=== PATIENT | male | born 1945 | race Caucasian/White ===

== ENCOUNTER 2019-12-15 12:21 | Inpatient (IN) | payer MEDICARE, OTHER ==
[~2019-12-15] VITALS: Ht 185.4 cm; Wt 89.2 kg
[2019-12-15] MEDS ORDERED: TOPROL XL25 MG PO (12:37)
[2019-12-15] MEDS ORDERED: MULTAQ400 MG PO (12:38)
[2019-12-15] MEDS ORDERED: ELIQUIS5 MG PO (12:38)
[2019-12-15] MEDS ORDERED: LIPITOR20 MG PO (12:38)
[2019-12-15] MEDS ORDERED: SINGULAIR10 MG PO (12:38)
[2019-12-15] MEDS ORDERED: CHEMO (12:39)
[2019-12-15 13:34] LABS: CALC OSMOLALITY 270 mosm/kg (275-300); CARBON DIOXIDE 25.3 mmol/L (21.0-32.0); CHLORIDE - SERUM 101 mmol/L (98-107); CREATININE - SERUM 1.3 mg/dL (0.6-1.3); GLUCOSE 110 mg/dL (74-106); POTASSIUM - SERUM 4.3 mmol/L (3.5-5.1); SODIUM 134 mmol/L (136-145); UREA NITROGEN 18 mg/dL (7-18); eGFR NON AFRICAN AMERICAN 57 mL/min (90-120)
[2019-12-15 13:42] LABS: ALBUMIN 2.4 g/dL (3.4-5.0); ALKALINE PHOSPHATASE 131 U/L (30-120); ALT (SGPT) 19 U/L (10-68); AMYLASE - SERUM 76 U/L (25-115); BILIRUBIN - TOTAL 0.99 mg/dL (0.2-1.3); LIPASE 178 U/L (73-393); PROTEIN - SERUM 7.2 g/dL (6.4-8.2); TROPONIN-I < 0.017 ng/mL (0.000-0.060)
[2019-12-15 14:06] LABS: BASOPHILS 0.4 % (0-2); EOSINOPHILS 2.3 % (0-7); HEMATOCRIT 38.9 % (42.0-54.0); HEMOGLOBIN 13.1 g/dL (13.5-17.5); IMMATURE GRANULOCYTES 0.5 % (0-5); LYMPHOCYTES 25.9 % (15-50); MCH 30.3 pg (26.0-34.0); MCHC 33.7 g/dL (31.0-37.0); MEAN PLATELET VOLUME 10.5 fL (7.4-10.4); MONOCYTES 16.3 % (2-11); NEUTROPHILS 54.6 % (40-80); RBC 4.32 10x6/uL (4.20-6.10); RDW 16.8 % (11.5-14.5); WBC 8.2 10x3/uL (4.8-10.8)
[2019-12-15 14:13] LABS: PLATELET COUNT 224 10x3/uL (130-400)
[2019-12-15 14:18] LABS: BILIRUBIN NEGATIVE (NEGATIVE); GLUCOSE NEGATIVE (NEGATIVE); KETONE NEGATIVE (NEGATIVE); NITRITE NEGATIVE (NEGATIVE); SPECIFIC GRAVITY 1.025 (1.005-1.020); UROBILINOGEN NORMAL (NORMAL)
[2019-12-15 14:19] LABS: BACTERIA FEW /hpf (NEGATIVE); EPITHELIAL CELLS OCC /hpf (0-5); RED CELLS - URINE OCC /hpf (0-5); WHITE CELLS - URINE RARE /hpf (NEGATIVE)
[2019-12-15 14:21] LABS: HYALINE CAST RARE /lpf (NONE SEEN)
--- NOTE | 2019-12-15 15:00 | NUR ---
PT LAYING IN BED. RESPIRATIONS ARE EVEN AND UNLABORED. NO DISTRESS NOTED. COLOR WNL FOR RACE. AT BEDSIDE. WILL CONTINUE TO MONITOR.
[2019-12-15 15:14] VITALS: BP 107/65
--- NOTE | 2019-12-15 17:05 | NUR ---
PT LAYING IN BED. RESPIRATIONS ARE EVEN AND UNLABORED. NO DISTRESS NOTED. RATES PAIN 3/10 AT THIS TIME. PT DENIES NEED FOR PAIN MEDICATION AT THIS TIME. AT BEDSIDE. VSS. WILL CONTINUE TO MONIOTR.
[2019-12-15 17:09] VITALS: BP 102/58
--- NOTE | 2019-12-15 17:45 | NUR ---
ROCEPHIN COMPLETE AT THIS TIME.
--- NOTE | 2019-12-15 18:44 | NUR ---
RECEIVED PT FROM ER. DR. ZAVALA IN ROOM SPEAKING WITH PATIENT. PT HAS REQUESTED SCRUBS. WILL PROVIDE THEM. REQUESTED LAURENT JAFFE, WILL PROVIDE. DENIES ANY OTHER NEEDS AT THIS TIME. QUICK START COMPLETED. WILL CONTINUE TO MONITOR.
[2019-12-15 19:25] LABS: % SATURATION 19 % (15-55); IRON 34 ug/dl (35-150); TOTAL IRON BIND CAPACITY 177 ug/dl (260-445); UNSAT IRON BIND CAPACITY 143 ug/dl (150-375)
--- NOTE | 2019-12-15 19:30 | NUR ---
PT SITTING UP ON SIDE OF BED, AOX4. DENIES NAUSEA AT THIS TIME. IV RIGHT HAND INFUSING NS @ 100. TELE PLACED ON PT. PROVIDED SCRUBS TO WEAR. DENIES PAIN. LUNGS DIMINISHED BILAT. OCCASIONAL COUGH. PROVIDED WATER. DENIES OTHER NEEDS. CL IN REACH, WILL CTM
[2019-12-15 19:45] LABS: APTT 51.5 SECONDS (22.8-39.4); INR 1.02 (0.85-1.17); PROTIME 13.4 SECONDS (11.6-15.0)
[2019-12-15 20:00] VITALS: BP 107/70
[2019-12-15 22:29] VITALS: BMI 24.4
--- NOTE | 2019-12-15 22:30 | NUR ---
IV RIGHT HAND BURNING AFTER DOXY ABX. NOT RED OR SWOLLEN BUT WAS BOTHERING PT AND HE STATES HE WOULD PREFER IV IN HIS LEFT ARM ANYWAY D/T BEING RIGHT HANDED. RESITED 20G IV LEFT FA X1 ATTEMPT. REMOVED RIGHT HAND IV WITH CATHETER INTACT. DENIES OTHER NEEDS, WILL CTM
[2019-12-16] VITALS: BP 103/61
[2019-12-16] MEDS ORDERED: MULTAQ400 MG PO (00:23)
[2019-12-16 04:00] VITALS: BP 103/45
[2019-12-16 06:49] LABS: BASOPHILS 0.7 % (0-2); EOSINOPHILS 2.4 % (0-7); HEMATOCRIT 32.8 % (42.0-54.0); IMMATURE GRANULOCYTES 0.3 % (0-5); LYMPHOCYTES 28.2 % (15-50); MCH 30.1 pg (26.0-34.0); MCHC 33.5 g/dL (31.0-37.0); MCV 89.9 fL (80.0-100.0); MONOCYTES 15.9 % (2-11); NEUTROPHILS 52.5 % (40-80); PLATELET COUNT 222 10x3/uL (130-400); RBC 3.65 10x6/uL (4.20-6.10); RDW 16.9 % (11.5-14.5)
[2019-12-16 06:58] LABS: WBC 5.7 10x3/uL (4.8-10.8)
[2019-12-16 07:01] LABS: ALBUMIN 2.2 g/dL (3.4-5.0); BILIRUBIN - TOTAL 1.16 mg/dL (0.2-1.3); CALCIUM 8.9 mg/dL (8.5-10.1); CARBON DIOXIDE 25.5 mmol/L (21.0-32.0); CREATININE - SERUM 1.2 mg/dL (0.6-1.3); MAGNESIUM - SERUM 2.1 mg/dL (1.8-2.4); POTASSIUM - SERUM 4.5 mmol/L (3.5-5.1); PROTEIN - SERUM 6.6 g/dL (6.4-8.2)
[2019-12-16 08:00] VITALS: BP 102/40
[2019-12-16 12:00] VITALS: BP 105/58
[2019-12-16 12:55] VITALS: BMI 24.4
[2019-12-16 14:07] VITALS: Ht 185.4 cm; Wt 89.2 kg
[2019-12-16 16:00] VITALS: BP 107/56
[2019-12-16 20:00] VITALS: BP 97/55
--- NOTE | 2019-12-16 21:00 | NUR ---
UP IN CHAIR AT BEDSIDE. NO COMPLAINTS VOICED. RESP EVEN AND ULABORED. NO DISTRESS NOTED. LFA WITH IV INTACT. NO REDNESS OR EDEMA NOTED. CL IN REACH
[2019-12-17] VITALS: BP 106/58
--- NOTE | 2019-12-17 01:24 | NUR ---
I have reviewed this patient and I concur with the Shift Assessment completed by the Licensed Practical Nurse today this shift.
[2019-12-17 04:00] VITALS: BP 94/53
[2019-12-17 06:44] LABS: BASOPHILS 0.6 % (0-2); EOSINOPHILS 3.1 % (0-7); HEMATOCRIT 28.6 % (42.0-54.0); HEMOGLOBIN 9.4 g/dL (13.5-17.5); IMMATURE GRANULOCYTES 0.3 % (0-5); LYMPHOCYTES 32.6 % (15-50); MCH 29.6 pg (26.0-34.0); MCHC 32.9 g/dL (31.0-37.0); MCV 89.9 fL (80.0-100.0); MONOCYTES 17.1 % (2-11); NEUTROPHILS 46.3 % (40-80); PLATELET COUNT 197 10x3/uL (130-400); RBC 3.18 10x6/uL (4.20-6.10); RDW 16.8 % (11.5-14.5)
[2019-12-17 06:49] LABS: WBC 3.6 10x3/uL (4.8-10.8)
[2019-12-17 07:21] LABS: ANION GAP 10.1 mmol/L (8-16); BILIRUBIN - TOTAL 0.84 mg/dL (0.2-1.3); CALCIUM 8.2 mg/dL (8.5-10.1); CARBON DIOXIDE 22.9 mmol/L (21.0-32.0); CREATININE - SERUM 1.1 mg/dL (0.6-1.3); MAGNESIUM - SERUM 1.9 mg/dL (1.8-2.4); PROTEIN - SERUM 5.9 g/dL (6.4-8.2)
[2019-12-17 08:38] VITALS: BP 90/45
[2019-12-17 12:00] VITALS: BP 93/51
[2019-12-17 16:00] VITALS: BP 105/61
--- NOTE | 2019-12-17 16:15 | NUR ---
PATIENT IN BED WITH IV INTACT. NO COMPLAINTS OR SIGNS OF DISTRESS. DR. ZAVALA TO SEE PATIENT. STATED PATIENT SHOULD BE OK TO HAVE SURGERY THURSDAY. PATIENT FAMILY AT BEDSIDE. CALL LIGHT WITHIN REACH.
--- NOTE | 2019-12-17 18:18 | NUR ---
PATIENT IN BED WITH IV INTACT. NO COMPLAINTS OR SIGNS OF DISTRESS. CALL LIGHT WITHIN REACH.
[2019-12-17 20:00] VITALS: BP 101/54
[2019-12-18] VITALS: BP 100/65
[2019-12-18 04:00] VITALS: BP 100/50
[2019-12-18 05:41] LABS: ANION GAP 11.1 mmol/L (8-16); BILIRUBIN - TOTAL 0.79 mg/dL (0.2-1.3); CALCIUM 8.4 mg/dL (8.5-10.1); CARBON DIOXIDE 22.9 mmol/L (21.0-32.0); CREATININE - SERUM 1.1 mg/dL (0.6-1.3); MAGNESIUM - SERUM 1.7 mg/dL (1.8-2.4); PROTEIN - SERUM 5.6 g/dL (6.4-8.2)
[2019-12-18 05:45] LABS: BASOPHILS 0.6 % (0-2); EOSINOPHILS 2.7 % (0-7); HEMATOCRIT 27.4 % (42.0-54.0); HEMOGLOBIN 9.2 g/dL (13.5-17.5); IMMATURE GRANULOCYTES 0.6 % (0-5); LYMPHOCYTES 30.7 % (15-50); MCH 30.1 pg (26.0-34.0); MCHC 33.6 g/dL (31.0-37.0); MCV 89.5 fL (80.0-100.0); MEAN PLATELET VOLUME 9.9 fL (7.4-10.4); MONOCYTES 19.7 % (2-11); NEUTROPHILS 45.7 % (40-80); PLATELET COUNT 213 10x3/uL (130-400); RBC 3.06 10x6/uL (4.20-6.10); RDW 16.8 % (11.5-14.5); WBC 3.4 10x3/uL (4.8-10.8)
[2019-12-18 08:00] VITALS: BP 101/45
[2019-12-18 12:00] VITALS: BP 93/52
[2019-12-18 16:00] VITALS: BP 93/52
[2019-12-18 21:01] VITALS: BP 94/54
[2019-12-19 00:21] VITALS: BP 88/50
[2019-12-19 05:14] LABS: BASOPHILS 0.6 % (0-2); EOSINOPHILS 3.2 % (0-7); HEMATOCRIT 27.8 % (42.0-54.0); HEMOGLOBIN 9.3 g/dL (13.5-17.5); IMMATURE GRANULOCYTES 0.9 % (0-5); LYMPHOCYTES 31.4 % (15-50); MCH 30.1 pg (26.0-34.0); MCHC 33.5 g/dL (31.0-37.0); MEAN PLATELET VOLUME 9.7 fL (7.4-10.4); MONOCYTES 20.2 % (2-11); NEUTROPHILS 43.7 % (40-80); PLATELET COUNT 210 10x3/uL (130-400); RBC 3.09 10x6/uL (4.20-6.10); RDW 16.9 % (11.5-14.5); WBC 3.4 10x3/uL (4.8-10.8)
[2019-12-19 05:31] LABS: ANION GAP 8.4 mmol/L (8-16); BILIRUBIN - TOTAL 0.84 mg/dL (0.2-1.3); CALCIUM 8.3 mg/dL (8.5-10.1); CARBON DIOXIDE 24.2 mmol/L (21.0-32.0); CREATININE - SERUM 1.1 mg/dL (0.6-1.3); MAGNESIUM - SERUM 1.8 mg/dL (1.8-2.4); POTASSIUM - SERUM 3.6 mmol/L (3.5-5.1); PROTEIN - SERUM 5.7 g/dL (6.4-8.2)
[2019-12-19 06:10] VITALS: BP 93/52
[2019-12-19 08:16] VITALS: BP 98/57
--- NOTE | 2019-12-19 09:10 | EC ---
PATIENT:CHATO HUGO DATE OF SERVICE: 12/15/19 SEX: M MEDICAL RECORD: [id number] DATE OF : [birth year] LOCATION:[facility] AGE OF PATIENT: 74 ADMISSION DATE: 12/15/19 REFERRING PHYSICIAN: INTERPRETING PHYSICIAN: JUAN RAMON KAUR MD ECHOCARDIOGRAM REPORT ECHO CHARGES 4 ECHO COMPLETE Date: 12/16/19 CLINICAL DIAGNOSIS: DYSPNEA HX CAD/STENT ECHOCARDIOGRAPHIC MEASUREMENTS (adult normal given) AC root (d.<3.7cm) 3.8 cm LV Septum d (<1.2 cm> 1.4 cm Valve Excursion 1.5 cm LV Septum (systole) 1.8 cm Left Atria (s.<4.0cm> 3.0 cm LVPW d(<1.2cm) 1.3 cm RV (d.<2.3cm) 3.9 cm LVPW (sytole) 2.0 cm LV diastole(<5.6CM) 6.4 cm MV E-F(>70mm/sec) cm LV systole 3.5 cm LVOT Diameter 2.1 cm MV exc.(>10mm) 2.0 cm Est.ejection fraction (50-75%) % DOPPLER: LVIT cm/sec A 77.0 cm/sec E 34.0 cm/sec LA cm/sec RVSP 21 mmHg LVOT 137 cm/sec AOP1/2T m/s Asc. Ao 188 cm/sec RVOT 83 cm/sec RA cm/sec PA 128 cm/sec AV Gradient Peak 14.13mmHg AV Mean 8.71 mmHg AV Area 2.54 cm MV Gradient Peak 4.23 mmHg MV Mean 1.27 mmHg MV Area cm COMMENTS: Assistant Director: 2 PADMINI SOSA Safe Deposit Clerk: 3 Dr. Floyd TAPE# PACS Pericardial Effusion N DATE OF SERVICE: Adequate 2D, color flow imaging, spectral Doppler, and M-Mode. LVH is present. LV internal dimensions are normal. Wall motion is normal. EF greater than or equal to 55%. Aortic valve is tricuspid. No evidence of stenosis by Doppler interrogation. Left atrium is normal at 3.0 cm. Mitral valve shows no prolapse. Trace MR. Right-sided chambers are grossly normal. Trace TR. ECHOCARDIOGRAM REPORT [id number] CHATO HUGO TRANSINT:[id number] Voice Confirmation ID: [id number] DOCUMENT ID: [id number] JUAN RAMON KAUR MD at 0910 CC: [id number] DICTATION DATE: 12/16/19 1157 DANCE COSTUME DESIGNER: 12/16/19 1254 ADM IN [facility] [address] [place] [address]
--- NOTE | 2019-12-19 10:00 | NUR ---
DR. BOYCE STATES TO ME TO TALK TO PRIMARY ABOUT CONSULTING GI FOR PT'S GERD AND HAVING DR. NUR DO AN OUTPATIENT EGD. I VERBALIZED UNDERSTANDING. MANAV BARONED.
--- NOTE | 2019-12-19 10:26 | NUR ---
I have reviewed this patient and I concur with the Shift Assessment completed by the Licensed Practical Nurse today this shift.
--- NOTE | 2019-12-19 10:28 | NUR ---
CONSENTS SIGNED FOR [facility] TOMORROW.
[2019-12-19 12:11] VITALS: BP 100/52
--- NOTE | 2019-12-19 13:34 | NUR ---
SPOKE WITH MANAV ORDAZ THAT DR. BOYCE WANTS GI CONSULTED FOR PT'S ACID REFLUX AND POSSIBLE EGD OUTPATIENT. HE VERBALIZED UNDERSTANDING.
--- NOTE | 2019-12-19 13:58 | NUR ---
Nutrition follow-up: Diet: Regular PO intake ~71% average of last 6 meals Labs reviewed +BM Wt: 184# Pt scheduled for hernia repair 12/20/19 RDN following.
--- NOTE | 2019-12-19 14:43 | NUR ---
PT HAD A 9 RUN OF V-TACH. EKG DONE. MANAV ORDAZ AWARE AND STATES TO ORDER CARDIAC ENZYMES ONE TIME. I VERBALIZED UNDRSTANDING. LAB DRAWN CARDIAC ENZYMES.
[2019-12-19 15:25] LABS: CKMB 1.5 U/L (0.0-3.6); CREATINE KINASE 40 UL (21-232)
[2019-12-19 15:27] LABS: TROPONIN-I < 0.017 ng/mL (0.000-0.060)
--- NOTE | 2019-12-19 15:55 | NUR ---
MANAV ORDAZ STATES EKG AND CARDIAC ENZYMES WERE NORMAL BUT PT MAY STILL NEED CARDIAC CLEARANCE FOR SX TOMOROROW AFTER HAVING 9 RUN OF VTACH. HE STATES TO CALL CARDIOLOGY AND MAKE THEM AWARE. I CALLED AND SPOKE WITH ADRIAN ORDAZ ABOUT SITUATION AND THAT CARDILOGY WAS CONSULTED 12/16/19 0817 AND NO ONE HAS SEEN PT ALSO SHE STATES SHE WILL MAKE SURE SOMEONE COMES TO SEE PT TODAY AND WILL SEE ABOUT CLEARING PT FOR SX TOMORROW. I VERBALIZED UNDERSTANDING.
[2019-12-19 16:54] VITALS: BP 98/50
[2019-12-19 21:06] LABS: CREATINE KINASE 34 UL (21-232); TROPONIN-I < 0.017 ng/mL (0.000-0.060)
[2019-12-19 21:58] VITALS: BP 93/46
--- NOTE | 2019-12-19 22:26 | NUR ---
IV RESITED TI RIGHT FOREARM 22GAGE. EKG #1 COMPLETED SINUS WITH 1ST DEGREE AV BLOCK PATIENT RESTING SITTIN UP IN BED WITH FOOTBALL GAME ON. NO S/S OF DISTRESS NO C/O PAIN STATED NO NEEDS AT THIS TIME.
[2019-12-20 00:51] VITALS: BP 95/47
[2019-12-20 02:56] LABS: BASOPHILS 0.3 % (0-2); EOSINOPHILS 3.8 % (0-7); HEMATOCRIT 28.8 % (42.0-54.0); HEMOGLOBIN 9.4 g/dL (13.5-17.5); IMMATURE GRANULOCYTES 0.6 % (0-5); LYMPHOCYTES 30.7 % (15-50); MCH 29.7 pg (26.0-34.0); MCHC 32.6 g/dL (31.0-37.0); MCV 90.9 fL (80.0-100.0); MEAN PLATELET VOLUME 9.2 fL (7.4-10.4); MONOCYTES 20.3 % (2-11); NEUTROPHILS 44.3 % (40-80); PLATELET COUNT 234 10x3/uL (130-400); RBC 3.17 10x6/uL (4.20-6.10); WBC 3.2 10x3/uL (4.8-10.8)
[2019-12-20 03:28] LABS: ALBUMIN 2.1 g/dL (3.4-5.0); ALKALINE PHOSPHATASE 88 U/L (30-120); ALT (SGPT) 15 U/L (10-68); BILIRUBIN - TOTAL 0.79 mg/dL (0.2-1.3); CALC OSMOLALITY 273 mosm/kg (275-300); CALCIUM 8.3 mg/dL (8.5-10.1); CARBON DIOXIDE 24.7 mmol/L (21.0-32.0); CHLORIDE - SERUM 107 mmol/L (98-107); CKMB 1.5 U/L (0.0-3.6); CREATINE KINASE 32 UL (21-232); CREATININE - SERUM 1.3 mg/dL (0.6-1.3); GLUCOSE 92 mg/dL (74-106); MAGNESIUM - SERUM 1.7 mg/dL (1.8-2.4); PHOSPHOROUS 3.8 mg/dL (2.5-4.9); POTASSIUM - SERUM 3.7 mmol/L (3.5-5.1); PROTEIN - SERUM 5.9 g/dL (6.4-8.2); SODIUM 137 mmol/L (136-145); TROPONIN-I < 0.017 ng/mL (0.000-0.060); UREA NITROGEN 13 mg/dL (7-18); eGFR NON AFRICAN AMERICAN 57 mL/min (90-120)
--- NOTE | 2019-12-20 03:38 | NUR ---
#2 EKG COMPLETD AT 0200
[2019-12-20 06:16] VITALS: BP 91/46
[2019-12-20 10:06] VITALS: BP 122/57
[2019-12-20 11:33] LABS: CKMB 1.4 U/L (0.0-3.6); CREATINE KINASE 34 UL (21-232)
[2019-12-20 11:34] LABS: TROPONIN-I < 0.017 ng/mL (0.000-0.060)
--- NOTE | 2019-12-20 13:39 | NUR ---
I have reviewed this patient and I concur with the Shift Assessment completed by the Licensed Practical Nurse today this shift.
[2019-12-20 20:58] VITALS: BP 88/49
[2019-12-21 00:32] VITALS: BP 95/45
--- NOTE | 2019-12-21 03:34 | NUR ---
ALERT AND ORENTED ABLE TO VOICE NEEDS AND WANTS TO STAFF. WATER AND CALL LIGHT IN REACH. DRESSING PLACE TO SITE
[2019-12-21 04:35] VITALS: BP 86/35
[2019-12-21 06:04] LABS: HEMATOCRIT 26.3 % (42.0-54.0); HEMOGLOBIN 8.6 g/dL (13.5-17.5); MCH 29.8 pg (26.0-34.0); MCHC 32.7 g/dL (31.0-37.0); MEAN PLATELET VOLUME 9.6 fL (7.4-10.4); PLATELET COUNT 255 10x3/uL (130-400); RBC 2.89 10x6/uL (4.20-6.10); RDW 17.1 % (11.5-14.5)
[2019-12-21 06:32] LABS: ALKALINE PHOSPHATASE 81 U/L (30-120); BILIRUBIN - TOTAL 0.67 mg/dL (0.2-1.3); CALC OSMOLALITY 278 mosm/kg (275-300); CALCIUM 8.3 mg/dL (8.5-10.1); CARBON DIOXIDE 23.6 mmol/L (21.0-32.0); CHLORIDE - SERUM 109 mmol/L (98-107); GLUCOSE 93 mg/dL (74-106); MAGNESIUM - SERUM 1.9 mg/dL (1.8-2.4); PHOSPHOROUS 3.3 mg/dL (2.5-4.9); POTASSIUM - SERUM 3.7 mmol/L (3.5-5.1); PROTEIN - SERUM 5.6 g/dL (6.4-8.2); SODIUM 139 mmol/L (136-145); UREA NITROGEN 14 mg/dL (7-18); eGFR NON AFRICAN AMERICAN 78 mL/min (90-120)
[2019-12-21 06:36] LABS: ALT (SGPT) 11 U/L (10-68)
--- NOTE | 2019-12-21 07:10 | NUR ---
REC'D IN BED AWAKE AND ALERT. RESP EVEN AND UNLABORED WITH NO DISTRESS NOTED. CAN EXPRESS NEEDS AND WANTS. NO C/O NOTED OR VOICED. ASSESSMENT COMPLETED. C/L IN REACH AT BEDSIDE.
[2019-12-21 08:30] VITALS: BP 96/52
[2019-12-21 10:35] LABS: EOSINOPHILS 1 % (0-7); LYMPHOCYTES 12 % (15-50); MONOCYTES 18 % (2-11); NEUTROPHILS 69 % (40-80)
[2019-12-21 10:36] LABS: PLATELET ESTIMATE NORMAL; ROULEAUX OCC
--- NOTE | 2019-12-21 12:03 | MORECARE ---
CASE MANAGEMENT DISCHARGE SUMMARY PATIENT: CHATO HUGO UNIT: [id number] ADM DATE: 12/15/19 AGE: 74 : 45 SEX: M ROOM/BED: D.2231 AUTHOR: KYLEEDOC PHYSICIAN: REFERRING PHYSICIAN: DALE MARIA MD DATE OF SERVICE: 12/21/19 Discharge Plan Patient Name: CHATO HUGO Facility: [facility]:[place] : 1945 Planned Disposition: Home Anticipated Discharge Date: Discharge Date: Expected LOS: Initial Reviewer: [id number] Initial Review Date: 12/21/2019 Generated: 12/21/19 1:03 pm Comments DCP- Discharge Planning Updated by [email or web address]: Elsa Quispe on 12/21/19 11:[address] Patient Name: CHATO HUGO Admission Status: ER Accout number: [id number] Admission Date: 12-15-2019 : 1945 Admission Diagnosis:PNEUMONIA, UNSPECIFIED ORGANISM Attending: DALE MEYERS Current LOS: 6 Anticipated DC Date: Planned Disposition: Home Primary Insurance: MEDICARE A & B Discharge Planning Comments: CM met with patient at bedside after explaining CM role and obtaining verbal consent. CM discussed availability / needs of home health, REHAB and medical equipment. PATIENT DENIES ANY DISCHARGE NEEDS. IMM SIGNED. WILL TRANSPORT HOME AT TIME OF DISHCARGE. CM TO FOLLOW AND ASSIST NEEDED. Pre Press Operator: Elsa Quispe DCPIA - Discharge Planning Initial Assessment Updated by [email or web address]: Elsa Quispe on 12/21/19 12:01 pm * Is the patient Alert and Oriented? Yes * [facility] * [facility] [place] * Preadmission Environment Home with Family * ADLs Independent * Equipment None * Community resources currently utilized None * Additional services required to return to the preadmission environment? No * Can the patient safely return to the preadmission environment? Yes * Has this patient been hospitalized within the prior 30 days at any hospital? No Coverage Notice Reviewer: [id number] - Elsa Quispe Notice Issued Date-Time: 12/21/2019 12:02 Notice Type: IM Discharge Notice Notice Delivered To: Patient Relationship to Patient: Channel Marketing Program Manager Name: Delivery Method: HAND - Hand Delivered Silvia Days: Prior Verbal Notification: Recipient Understood Notice: Yes Recipient Signature: Yes Med Rec Note Co-signed by Attending: Coverage Notice Comment: Patient Name: CHATO HUGO Page [id number] at 1203 All edits/amendments must be made on the electronic document DICTATION DATE: 12/21/19 1203 FOREST RESOURCES PROFESSOR: LIZ 12/21/19 1203 RPT#: [id number] DC DATE: STATUS: ADM IN [facility] [address] [place] [address] END OF REPORT
--- NOTE | 2019-12-21 12:10 | MORECARE ---
CASE MANAGEMENT DISCHARGE SUMMARY PATIENT: CHATO HUGO UNIT: [id number] ADM DATE: 12/15/19 AGE: 74 : 45 SEX: M ROOM/BED: D.2231 AUTHOR: KYLEEDOC PHYSICIAN: REFERRING PHYSICIAN: DALE MARIA MD DATE OF SERVICE: 12/21/19 Discharge Plan Patient Name: CHATO HUGO Facility: [facility]:[place] : 1945 Planned Disposition: Home Anticipated Discharge Date: Discharge Date: Expected LOS: Initial Reviewer: [id number] Initial Review Date: 12/21/2019 Generated: 12/21/19 1:09 pm Comments DCP- Discharge Planning Updated by [email or web address]: Elsa Quispe on 12/21/19 11:[address] Patient Name: CHATO HUGO Admission Status: ER Accout number: [id number] Admission Date: 12-15-2019 : 1945 Admission Diagnosis:PNEUMONIA, UNSPECIFIED ORGANISM Attending: DALE MEYERS Current LOS: 6 Anticipated DC Date: Planned Disposition: Home Primary Insurance: MEDICARE A & B Discharge Planning Comments: CM met with patient at bedside after explaining CM role and obtaining verbal consent. CM discussed availability / needs of home health, REHAB and medical equipment. PATIENT DENIES ANY DISCHARGE NEEDS. IMM SIGNED. WILL TRANSPORT HOME AT TIME OF DISHCARGE. CM TO FOLLOW AND ASSIST NEEDED. Sandal Parts Assembler: Elsa Quispe DCPIA - Discharge Planning Initial Assessment Updated by [email or web address]: Elsa Quispe on 12/21/19 12:04 pm * Is the patient Alert and Oriented? Yes * [facility] * [facility] [place] * Preadmission Environment Home with Family * ADLs Independent * Equipment None * List name and contact numbers for known caregivers / representatives who currently or will assist patient after discharge: KINGA TRENT, * Community resources currently utilized None * Additional services required to return to the preadmission environment? No * Can the patient safely return to the preadmission environment? Yes * Has this patient been hospitalized within the prior 30 days at any hospital? No Coverage Notice Reviewer: [id number] - Elsa Quispe Notice Issued Date-Time: 12/21/2019 12:02 Notice Type: IM Discharge Notice Notice Delivered To: Patient Relationship to Patient: Electronics Processing Supervisor Name: Delivery Method: HAND - Hand Delivered Silvia Days: Prior Verbal Notification: Recipient Understood Notice: Yes Recipient Signature: Yes Med Rec Note Co-signed by Attending: Coverage Notice Comment: Last DP export: 12/21/19 11:03 am Patient Name: CHATO HUGO Page 07907 at 1210 All edits/amendments must be made on the electronic document DICTATION DATE: 12/21/19 1210 KILN CAR UNLOADER: LIZ 12/21/19 1210 RPT#: [id number] DC DATE: STATUS: ADM IN [facility] [address] [place] [address] END OF REPORT
[2019-12-21] MEDS ORDERED: AUGMENTIN 875-11 TAB PO (12:14)
[2019-12-21 12:16] VITALS: BP 110/53
--- NOTE | 2019-12-21 12:46 | NUR ---
I have reviewed this patient and I concur with the Shift Assessment completed by the Licensed Practical Nurse today this shift.
[2019-12-21] MEDS ORDERED: PACERONE200 MG PO (15:09)
[2019-12-21] MEDS ORDERED: ULTRAM50 MG PO (15:53)
--- NOTE | 2019-12-21 16:05 | NUR ---
DC HOME AT THIS TIME WITH ALL PERSONAL BELONGS. IV DC. VOICE UNDERSTANDING OF DC ORDERS. STABLE CONDITON UPON DEPARTURE.
--- NOTE | 2019-12-22 07:36 | MORECARE ---
CASE MANAGEMENT DISCHARGE SUMMARY PATIENT: CHATO HUGO UNIT: [id number] ADM DATE: 12/15/19 AGE: 74 : 45 SEX: M ROOM/BED: D.2231 AUTHOR: KYLEEDOC PHYSICIAN: REFERRING PHYSICIAN: DALE MARIA MD DATE OF SERVICE: 12/22/19 Discharge Plan Patient Name: CHATO HUGO Facility: [facility]:[place] : 1945 Planned Disposition: Home Anticipated Discharge Date: Discharge Date: 12/21/2019 Expected LOS: Initial Reviewer: [email or web address] Initial Review Date: 12/21/2019 Generated: 12/22/19 8:36 am Comments DCP- Discharge Planning Updated by [email or web address]: Elsa Quispe on 12/21/19 11:[address] Patient Name: CHATO HUGO Admission Status: ER Accout number: [id number] Admission Date: 12-15-2019 : 1945 Admission Diagnosis:PNEUMONIA, UNSPECIFIED ORGANISM Attending: DALE MEYERS Current LOS: 6 Anticipated DC Date: Planned Disposition: Home Primary Insurance: MEDICARE A & B Discharge Planning Comments: CM met with patient at bedside after explaining CM role and obtaining verbal consent. CM discussed availability / needs of home health, REHAB and medical equipment. PATIENT DENIES ANY DISCHARGE NEEDS. IMM SIGNED. WILL TRANSPORT HOME AT TIME OF DISHCARGE. CM TO FOLLOW AND ASSIST NEEDED. Test Lead Application Testing: Elsa Quispe DCPIA - Discharge Planning Initial Assessment Updated by [id number]: Elsa Quispe on 12/21/19 12:04 pm * Is the patient Alert and Oriented? Yes * [facility] * [facility] [place] * Preadmission Environment Home with Family * ADLs Independent * Equipment None * List name and contact numbers for known caregivers / representatives who currently or will assist patient after discharge: KINGA TRENT, * Community resources currently utilized None * Additional services required to return to the preadmission environment? No * Can the patient safely return to the preadmission environment? Yes * Has this patient been hospitalized within the prior 30 days at any hospital? No Coverage Notice Reviewer: [id number] - Elsa Quispe Notice Issued Date-Time: 12/21/2019 12:02 Notice Type: IM Discharge Notice Notice Delivered To: Patient Relationship to Patient: Media Assistant Name: Delivery Method: HAND - Hand Delivered Silvia Days: Prior Verbal Notification: Recipient Understood Notice: Yes Recipient Signature: Yes Med Rec Note Co-signed by Attending: Coverage Notice Comment: Last DP export: 12/21/19 11:10 am Patient Name: CHATO HUGO Page [phone] at 0736 All edits/amendments must be made on the electronic document DICTATION DATE: 12/22/1936 USED CAR SALES SUPERVISOR: LIZ 12/22/19 0736 RPT#: [id number] DC DATE:12/21/19 STATUS: DIS IN [facility] [address] [place] [address] END OF REPORT
--- NOTE | 2019-12-22 16:54 | OP ---
PATIENT NAME: CHATO HUGO MEDICAL RECORD: [id number] :[birth year] LOCATION:D.[facility]2231 ADMISSION DATE:12/15/19 SURGEON: JUAN CARLOS LUGO MD DATE OF OPERATION: 12/20/2019 PREOPERATIVE DIAGNOSES: 1. Right inguinal hernia. 2. Pneumonia. 3. Chronic lymphocytic leukemia. 4. History of non-Hodgkin's lymphoma. 5. History of prostate cancer status post prostatectomy. POSTOPERATIVE DIAGNOSES: 1. Right inguinal hernia. 2. Pneumonia. 3. Chronic lymphocytic leukemia. 4. History of non-Hodgkin's lymphoma. 5. History of prostate cancer status post prostatectomy. PROCEDURE: Right inguinal hernia repair with medium PHS mesh. SURGEON: Juan Carlos Lugo MD REPORT OF PROCEDURE: The patient's right groin was prepped and draped in sterile fashion. An oblique incision was made above the inguinal ligament. Electrocautery was used to dissect through the subcutaneous tissues down to the external oblique fascia. This fascia was opened up to the external ring using electrocautery. The ilioinguinal nerve was found and high ligated. I elevated the spermatic cord and a Bronson was placed around it. The patient had a hydrocele present when I eviscerated the patient's testicle. This hydrocele was opened up and clear straw-colored fluid was removed. The testicle itself appeared to be normal. I then placed this back into the scrotum and saw the patient had a large cord lipoma. This was dissected free and high ligated with 3-0 silk. The patient also had an indirect hernia defect. This was dissected from the spermatic cord and pushed back into the abdominal cavity. I then made an opening in the inguinal floor. There was a lot of scar tissue from previous prostatectomy and a careful dissection, I was able to open up the preperitoneal space of Retzius. Once I had this opened then I was able to insert a medium PHS mesh and this was sutured down on all 4 sides using multiple interrupted 0 Vicryls. The mesh appeared to rest in good position with no sign of any bleeding. The wound was irrigated out with normal saline. The external oblique fascia was closed with running 2-0 Vicryl, Rita's was closed with interrupted 3-0 Vicryl and the skin was closed with running subcutaneous 5-0 Monocryl. A total of 10 mL of 0.25% Marcaine with epinephrine was infused into the surrounding tissues and the wound was dressed appropriately. COMPLICATIONS: None. CONDITION: Stable. ANESTHESIA: General endotracheal and local. BLOOD LOSS: Minimal. TRANSINT:[id number] Voice Confirmation ID: [id number] DOCUMENT ID: [id number] OPERATIVE REPORT [id number] CHATO HUGO CHRISTIAN MD at 1654 CC: [id number] DICTATION DATE: 12/20/19 0856 VOCATIONAL PLACEMENT SPECIALIST: 12/20/19 1735 DIS IN 12/21/19 [place] [id number] [place] [address]
== END 2019-12-21 16:26 | disposition home or self-care (01) | DRG 987 ==
LOC: D.ER 12:21 → D.MS 16:34
PROVIDERS: Emergency Medicine; Family Medicine; Surgery; ADMIT Family Medicine; ATTEND Family Medicine
PROC: 0YU50JZ Supplement Right Inguinal Region with Synthetic Substitute, Open Approach (ICD-10-PCS; principal; 2019-12-20 07:30)
DX: J69.0 Pneumonitis due to inhalation of food and vomit (principal); E43 Unspecified severe protein-calorie malnutrition; C91.10 Chronic lymphocytic leukemia of B-cell type not having achieved remission; E87.1 Hypo-osmolality and hyponatremia; J98.11 Atelectasis; K40.90 Unilateral inguinal hernia, without obstruction or gangrene, not specified as recurrent; I25.10 Atherosclerotic heart disease of native coronary artery without angina pectoris; I48.91 Unspecified atrial fibrillation; E78.5 Hyperlipidemia, unspecified; D64.9 Anemia, unspecified; R91.8 Other nonspecific abnormal finding of lung field; Z68.24 Body mass index [BMI] 24.0-24.9, adult